=== PATIENT | female | born 1930 | race Caucasian/White ===

== ENCOUNTER 2019-10-19 19:02 | Emergency (ER) | payer MEDICARE ==
[2019-10-19] MEDS ORDERED: LIDOCAINE 1% INJ 10MG/ML (20 ML MDV) SQ ONE (19:18)
[2019-10-19] MEDS ORDERED: DIPH,PERTUS(ACELL)TETVAC-LF 0.5 ML VIAL IM ONE (19:18)
--- NOTE | 2019-10-19 19:47 | ED ---
Fall HPI - General Chief Complaint: Fall Stated Complaint: Fall Time Seen by Provider: 10/19/19 19:10 Source: patient, EMS, RN notes reviewed, old records reviewed Mode of arrival: EMS - History of Present Illness Initial Comments: Patient is an 89-year-old female. She presents emergency department today after her trip and fall area she reports that she tripped over some shingles that were placed in her driveway and sidewalk. Patient had been fell face first. She complains of abrasion and swelling over her nose and swelling over forehead. Patient states that she has no other injuries. Denies any chest pain or shortness of breath. - Related Data Previous Rx's Medication Instructions Recorded Amoxic-Pot Clav 875-125Mg 1 tab PO Q12HR #20 tablet 10/19/19 [Augmentin 875-125] Allergies Allergy/AdvReac Type Severity Reaction Status Date / Time No Known Allergies Allergy Verified 10/19/19 20:18 Review of Systems ROS Statement: Those systems with pertinent positive or pertinent negative responses have been documented in the HPI. ROS Other: All systems not noted in ROS Statement are negative. Past Medical History Past Medical History: Hyperlipidemia, Hypertension Additional Past Medical History / Comment(s): heart stent History of Any Multi-Drug Resistant Organisms: None Reported Past Surgical History: Orthopedic Surgery Additional Past Surgical History / Comment(s): bilateral knee sx, cataracts removed, skin biopsy Past Psychological History: No Psychological Hx Reported Smoking Status: Never smoker Past Alcohol Use History: Daily Past Drug Use History: None Reported General Exam Limitations: no limitations General appearance: alert, in no apparent distress Head exam: Present: atraumatic, normocephalic, normal inspection, other (swelling contusion over forehead) Eye exam: Present: normal appearance, PERRL, EOMI. Absent: scleral icterus, co njunctival injection, periorbital swelling ENT exam: Present: normal exam, normal oropharynx, mucous membranes moist, other (abrasion over nose bridge, laceration measuring 1cm. ) Neck exam: Present: normal inspection. Absent: tenderness, meningismus, lymphadenopathy Respiratory exam: Present: normal lung sounds bilaterally. Absent: respiratory distress, wheezes, rales, rhonchi, stridor Cardiovascular Exam: Present: regular rate, normal rhythm, normal heart sounds. Absent: systolic murmur, diastolic murmur, rubs, gallop, clicks GI/Abdominal exam: Present: soft, normal bowel sounds. Absent: distended, tenderness, guarding, rebound, rigid Extremities exam: Present: normal inspection, full ROM, normal capillary refill. Absent: tenderness, pedal edema, joint swelling, calf tenderness Back exam: Present: normal inspection Neurological exam: Present: alert, oriented X3, CN II-XII intact Psychiatric exam: Present: normal affect, normal mood Skin exam: Present: warm, dry, intact, normal color. Absent: rash Course Vital Signs 10/19/19 10/19/19 19:05 21:01 Temperature 99.4 F 97.1 F L Pulse Rate 107 H 80 Respiratory 22 18 Rate Blood Pressure 176/66 147/72 O2 Sat by Pulse 97 97 Oximetry Procedures - Laceration Laceration #1 Site: other (nose) Size (cm): 2 Description: flap, irregular Depth: simple, single layer Anesthetic Used: lidocaine 1% Anesthesia Technique: local infiltration Amount (mls): 2 Pre-repair: wound explored, irrigated extensively Type of Sutures: nylon Size of Sutures: 6-0 Number of Sutures: 3 Technique: simple, interrupted Patient Tolerated Procedure: well, no complications Medical Decision Making - Medical Decision Making 89 year old female with CC of trip and fall. She landed onto her face causing significant forehead contusion and nasal laceration. PAtient is not on blood thinner. She is neurologically intact. CT brain and cspine is negative for acute process. Removed from c collar. Laceration over nose is closed with 3 sutures. Discussed concern for nasal bone fracture. No septal hematoma at this time. DC with antibiotic for nasal bone fracture and pain medication. Discussed return parameters. - Radiology Data Radiology results: report reviewed There is no acute fracture or dislocation evident in cervical spine. No acute intracranial hemorrhage or midline shift is seen. Moderate lower frontal scalp hematoma. Acute comminuted displaced fracture through the nasal bones with associated soft tissue swelling. Disposition Clinical Impression: Nasal bone fx-open, Fall, Facial contusion Disposition: HOME SELF-CARE Condition: Good Instructions (If sedation given, give patient instructions): Nasal Fracture (ED), Facial Contusion (ED) Additional Instructions: Patient advised to take antibiotics as prescribed. Take the pain medicine as directed only at night or when resting. Patient can return to the emergency department if any alarming signs or symptoms occur. Prescriptions: Amoxic-Pot Clav 875-125Mg [Augmentin 875-125] 1 tab PO Q12HR #20 tablet Is patient prescribed a controlled substance at d/c from ED?: No Referrals: Nonstaff,Physician [Primary Care Provider] - 1-2 days Nickolas Houston DO [Doctor of Osteopathic Medicine] - 1-2 days Time of Disposition: 20:42
--- NOTE | 2019-10-19 20:17 | CT ---
EXAMINATION TYPE: CT brain cspine wo con, CT facial bones wo con DATE OF EXAM: 10/19/2019 COMPARISON: NONE HISTORY: Fall injury with headache, neck pain, and nasal laceration. CT DLP: 1072.9 mGycm. Automated Exposure Control for Dose Reduction was Utilized. TECHNIQUE: CT scan of the head , facial bones, and cervical spine are performed without contrast. FINDINGS: There is no acute intracranial hemorrhage or midline shift identified. Diffuse ventricula r and sulcal prominence. Some low attenuation in the periventricular white matter. Calvarium is intac t. Moderate sized acute left frontal scalp hematoma axial image 15. Mandible is intact. Temporomandibular joints are maintained bilaterally. There is acute comminuted mi nimally displaced fracture through the nasal bridge involving right and left aspects. Scleral calcifi cation both globes. Orbital floors and delgado are intact. Intraconal fat is preserved. Zygomatic arche s are intact. Visualized mandible is intact. Pterygoid plates are maintained. Visualized paranasal si nuses are clear. Cervical spine is visualized in its entirety from C1 through upper thoracic levels and demonstrates g rade 1 anterolisthesis C3 on C4 and C4 on C5 without evidence of acute fracture or dislocation. Prev ertebral soft tissue appears within normal limits. The C1-C2 articulation shows asymmetric left-side d narrowing and spurring on coronal images. Vertebral body heights are maintained. Moderate to severe disc space narrowing and spurring C5-C6 level. Mild to moderate disc space narrowing with moderate t o severe spurring C5-C6 and C6-C7 levels. Posterior spur disc complexes efface the anterior thecal sa c at C5-C6 and C6-C7 levels. Axial images show multilevel uncovertebral facet degenerative changes c ausing multilevel bilateral neural foraminal narrowing for reference C3-C4 through C5-C6 levels. Thyr oid gland is somewhat small in size. Lung apices are clear. IMPRESSION: 1. There is no acute fracture or dislocation evident in the cervical spine. 2. No acute intracranial hemorrhage or midline shift is seen. There is moderate low left frontal acut e scalp hematoma. 3. There is acute comminuted displaced fracture through the nasal bones with associated soft tissue s welling.
[2019-10-19] MEDS ORDERED: ACET/COD 300 MG/30 MG STARTER PACK 6 TAB BTL PO STA (20:44)
[2019-10-19 21:01] VITALS: BP 147/72; PULSE 80; RESP 18; TEMP 97.1
== END 2019-10-19 20:55 | disposition home or self-care (01) ==
LOC: EC 19:02
DX: S02.2XXA Fracture of nasal bones, initial encounter for closed fracture (principal); S00.03XA Contusion of scalp, initial encounter; I10 Essential (primary) hypertension; Z23 Encounter for immunization; W01.10XA Fall on same level from slipping, tripping and stumbling with subsequent striking against unspecified object, initial encounter; Y92.093 Driveway of other non-institutional residence as the place of occurrence of the external cause
CPT/HCPCS: 72125; 70486; 70450; 90715; 90471; 99284; J2001